=== PATIENT | male | born 1955 | race Caucasian/White ===

== ENCOUNTER 2024-06-21 08:30 | Outpatient (RCR) | payer MEDICARE, OTHER, SELFPAY | END 2024-08-30 08:40 | disposition home or self-care (01) | LOC: HO.CR 08:30 | PROVIDERS: PCP Family Medicine; Visit Provider Internal Medicine Cardiovascular Disease | DX: I21.4 Non-ST elevation (NSTEMI) myocardial infarction (principal) | CPT/HCPCS: 93798 ==

== ENCOUNTER → 2024-06-21 09:50 | Outpatient (REF) | payer MEDICARE, OTHER, SELFPAY ==
--- NOTE | 2024-06-21 09:59 | ECG_ITS ---
Test Reason : nstemi Blood Pressure : */* mmHG Vent. Rate : 64 BPM Atrial Rate : 64 BPM P-R Int : 140 ms QRS Dur : 74 ms QT Int : 396 ms P-R-T Axes : 48 -61 78 degrees QTcB Int : 408 ms Normal sinus rhythm Left anterior fascicular block Nonspecific T wave abnormality Abnormal ECG When compared with ECG of 18-Dec-2010 21:20, Left anterior fascicular block present Referred By: Dylan Garcia Electronically Signed By: Dylan Garcia
--- OUTSIDE RECORDS SUMMARY | 2024-06-21 11:13 | XMS_ITS | Clinical Summary ---
Author Organization [facility] Address [address] [place] [address] Care Team Providers Care Brickmason Apprentice Name Role Phone Yordan [place] MD Primary Care Provider +1- [phone] Allergies No known active allergies Medications Medication Sig Dispensed Refills Start Date End Date Status atorvastatin (LIPITOR) 40 MG tablet Take 40 mg by mouth. Acti ve carvedilol (COREG) 3.125 MG tablet Take 3.125 mg by mouth. 05/06/2024 Active predniSONE (DELTASONE) 2.5 MG tablet 2.5 mg. 03/22/2018 Active hydroCHLOROthiazide (MICROZIDE) 12.5 MG capsule Take by mouth. Active Xarelto 20 MG tablet Take 20 mg by mouth. Active valsartan (DIOVAN) 40 MG tablet Take 80 mg by mouth. 05/06/2024 Ac tive tacrolimus (Envarsus XR) 0.75 MG 24 hr tablet Take 0.75 mg by mouth. 03/22/2018 Active LORazepam (ATIVAN) 0.5 MG tablet Take 1 mg by mouth Once before discharge. 05/03/2024 Active lidocaine (LMX 4) 4 % cream 1 application as needed Externally Three times a day Active clopidogrel (PLAVIX) 75 MG tablet Take 75 mg by mouth daily. 05/06/2024 Active Active Problems No known active problems Encounters Date Type Department Care Team Description 06/16/2024 10:00 AM EDT [facility] [address] [place] [address] Katja Fowler MD Radiculopathy, lumbar region (Primary Dx) 06/07/2024 Scanned Document [facility] Department of Physiatry [place] [address] [place] [address] Malinda Michelle MD 05/30/2024 3:30 PM EDT Consult [facility] [address] [place] [address] Malinda Michelle MD Degenerative disc disease at L5-S1 level (Primary Dx); Chronic bilateral low back pain, unspecified whether sciatica present 05/29/2024 Travel 04/21/2024 Scanned Document [facility] Department of Physiatry [place] [address] [place] [address] Malinda Michelle MD 04/18/2024 Orders Only [facility] [address] [address] Katja Fowler MD Spondylolisthesis, lumbar region (Primary Dx); Radiculopathy, lumbar region 04/14/2024 10:15 AM EST [facility] [address] [place] [address] Rosa, ARMANDO NICHOLSON Low back pain, unspecified back pain laterality, unspecified chronicity, unspecified whether sciatica present (Primary Dx) 04/14/2024 Orders Only [facility] [address] [address] Katja Fowler MD Spondylolisthesis, lumbar region (Primary Dx) from Last 3 Months Family History Medical History Relation Name Comments Alcohol abuse Father Father Coronary artery disease Father Father Relation Name Status Comments Father Father Social History Tobacco Use Types Packs/Day Years Used Date Smoking Tobacco: Never Smokeless Tobacco: Never Alcohol Use Standard Drinks/Week Comments Not Currently 0 (1 standard drink = 0.6 oz pur e alcohol) Alcohol and beer Sex and Gender Information Value Date Recorded Sex Assigned at Male 04/13/2024 2:31 PM EST Gender Identity Male 04/13/2024 2:31 PM EST Sexual Orientation Asexual 04/13/2024 2: 31 PM EST Last Filed Vital Signs Vital Sign Reading Time Taken Comments Blood Pressure 149/87 05/30/2024 3:17 PM EDT Pulse 66 05/30/2024 3:17 PM EDT Temperature - - Respiratory Rate - - Oxygen Saturation 97% 05/30/2024 3:17 PM EDT Inhaled Oxygen Concentration - - Weight - - Height - - Body Mass Index - - Plan of Treatment Upcoming Encounters Date Type Department Care Team (Late st Contact Info) Description 07/31/2024 10:30 AM EDT Office Visit [facility] Department of Physiatry [place] [address] [place] [phone] Malinda Michelle MD [address] [place] [address] Health Maintenance Due Date Last Done Comments Hepatitis C Virus Screening 1955 DTaP/Tdap/Td Vaccines (1 - Tdap) 11/19/1974 Pneumococcal Vaccines 50+ (1 of 2 - PCV) 11/19/1974 Zoster (Shingles) Vaccine (1 of 2) 11/19/1974 Colonoscopy 11/19/2000 RSV Vaccine 60 years and older and Patients (1 - Risk 60-74 years 1-dose series) 2015 COVID-19 Vaccine ( season) 2023 01/16/2022, 06/04/2021, 01/29/2021, Additional history exists Influenza Vaccine Completed 12/07/2023, , 01/02/2022, Additional history exists Hepatitis B Vaccines Aged Out No long er eligible based on patient's age to complete this topic Care Teams Brickmason Apprentice Relationship Specialty Start Date End Date Yordan [place] MD [address] [place] [address] PCP - General Family Medicine 01/21/24
--- OUTSIDE RECORDS SUMMARY | 2024-06-21 11:13 | XMS_ITS ---
Author Name [facility] Organization Unknown History of Medication Use Medication Directions Dispensed Refills Start Date End Date Stat us atorvastatin (LIPITOR) 40 MG tablet Take 40 mg by mouth. active valsartan (DIOVAN) 40 MG tablet Take 80 mg by mouth. 05/06/2024 active clopidogrel (PLAVIX) 75 MG tablet Take 75 mg by mouth daily. 05/06/2024 active LORazepam (ATIVAN) 0.5 MG tablet Take 1 mg by mouth Once before discharge. 05/03/2024 active carvedilol (COREG) 3.125 MG tablet Take 3.125 mg by mouth. 05/06/2024 active lidocaine (LMX 4) 4 % cream 1 application as needed Externally Three times a day active hydroCHLOROthiazide (MICROZIDE) 12.5 MG capsule Take by mouth. active Xarelto 20 MG tablet Take 20 mg by mouth. active predniSONE (DELTASONE) 2.5 MG tablet 2.5 mg. 03/22/2018 active tacrolimus (Envarsus XR) 0.75 MG 24 hr tablet Take 0.75 mg by mouth. 03/22/2018 active tiZANidine (ZANAFLEX) 4 MG tablet Take 1 tablet (4 mg total) by mouth 3 (three) times a day as needed for muscle spasms. 01/21/2024 aborted Problems Problem Status Onset Date Problem Type Date of Resoluti on Source Degenerative disc disease at L5-S1 level active EncounterDiagnosisAct [facility] Chronic bilateral low back pain, unspecified whether sciatica present active EncounterDiagnosisAct [facility] Encounters Encounter Type Encounter Reason Primary Diagnosis Location Date Ambulatory Radiculopathy, lumbar region Radiculopathy, lumbar region [facility] 06/16/2024 Ambulatory Lumbar Back Pain Lumbar Back Pain [facility] 05/30/2024 Ambulatory Pain Pain [facility] 04/14/2024 Ambulatory [facility] 01/21/2024 Ambulatory Low back pain, unspecified Low back pain, unspecified [place] [facility] 01/21/2024 Care Team Organization Name Specialty Phone Email Start Date End [place] [facility] LATON[facility] RICCI Primary [facility] 01/22/2024 [place] [facility] LAT[facility] PRIDEONS Primary Care 01/21/2024 [facility] 01/10/2024
--- OUTSIDE RECORDS SUMMARY | 2024-06-21 11:13 | XMS_ITS | Encounter Summary ---
Author Organization [facility] Address [address] [place] [address] Care Team Providers Care Engineering Research Manager Name Role Phone Yordan [place] MD Primary Care Provider +1- [phone] Encounter Details Date Type Department Care Team (Late st Contact Info) Description 01/25/2024 Scanned Document [facility] [address] [phone] Katja Fowler MD [address] [place] [address] Social History Tobacco Use Types Packs/Day Years Used Date Smoking Tobacco: Never Assessed Sex and Gender Information Value Date Recorded Sex Assigned at Male 04/13/2024 2:31 PM EST Gender Identity Male 04/13/2024 2:31 PM EST Sexual Orientation Asexual 04/13/2024 2: 31 PM EST documented as of this encounter Plan of Treatment Upcoming Encounters Date Type Department Care Team (Late st Contact Info) Description 07/31/2024 10:30 AM EDT Office Visit [facility] Department of Physiatry [place] [address] [place] [address] Malinda Michelle MD [address] [place] [address] documented as of this encounter Visit Diagnoses Not on filedocumented in this encounter Care Teams Engineering Research Manager Relationship Specialty Start Date End Date Yordan [place] [address] PCP - General Family Medicine 01/21/24 documented as of this encounter
--- OUTSIDE RECORDS SUMMARY | 2024-06-21 11:13 | XMS_ITS | Encounter Summary ---
Author Organization [facility] Address [address] [place] [address] Care Team Providers Care Stock Crane Operator Name Role Phone Yordan [place] MD Primary Care Provider +1- [phone] Reason for Visit * Reason Comments Pain Encounter Details Date Type Department Care Team ([facility] st Contact Info) Description 06/16/2024 10:00 AM EDT [facility] [address] [address] Katja Fowler MD [address] [place] [address] Radiculopathy, lumbar region (Primary Dx) Social History Tobacco Use Types Packs/Day Years [...] PM EST documented as of this encounter Progress Notes * Katja Fowler MD - 06/16/2024 10:00 AM EDT Images from the original note were not included. [address] [facility] [address] [address] Encounter Date: 06/16/2024 Assessment & Plan Javier Gonzalez is a 68 y.o. male who presents today for Chief Complaint Patient presents with Spine - Pain . Signs and symptoms consistent with diagnosis of L5-S1 degenerative disc disease with relative degree of stenosis as well as possible trochanteric bursitis Plan: We discussed management options in detail today. Unfoortunately the injection that delayed due to some medical issues and being on blood thinner. Hopefully can proceed with injection in the future. Will see how he responds to this. Happy to see him back should injections not providing relief. The patient was informed of their diagnosis and treatment options. Medical decision-making involvedassessing all known acute and chronic conditions, the relationship of diagnoses, systemic effects, and acute exacerbations. External medical notes and results from diagnostic tests were reviewed whenapplicable. The risks and benefits of operative and non-operative treatment, including side effectsor complications of interventions (including medication and therapy) possible complications with and without treatment and when to proceed with options for surgery were reviewed. An independent historian was utilized if present, and communications were sent to listed providers. Any social or physica l determent of health, when relevant and recognized, was addressed. All necessary electronic precharting, postcharting and dictation was factored into clinical time documentation. History of Present Illness: Javier Gonzalez is a 68 y.o. male who presents today for Chief Complaint Patient presents with Spine - Pain . He returns to follow-up in regards to his lumbar spine. He has known L5-S1 degenerative disease. His ongoing pain in the back and hip area. He is also diagnosed with potential trochanteric bursitis. He had gone for injection evaluation but has not been able to get this completed as of yet. Orthopedics Symptoms and Treatments How many days per week do you experience symptoms? How many nights per week do you experience your symptoms? Do you experience any of the following? What makes symptoms worse? What treatments have you tried and did they help? Do you participate in any recreation activities or sports and are you currently able to participate? Physical Exam General: Alert and oriented x3, no acute distress Aspirations are unlabored, sitting comfortably Skin appears to be intact MSK: 5/5 in the bilateral iliopsoas, quadriceps, tibialis anterior, EHL and gastroc Sensation intact to light touch in the bilateral L2-S1 distribution Reflexes are normal and symmetric at the bilateral patella and ankle Imaging Imaging Impression: No imaging was obtained today Data Review Visit Orders. 1. Radiculopathy, lumbar region Answers submitted by the patient for this visit: Review of Systems (Submitted on 06/14/2024) Appetite change: No Chills: No Fever: No Weight Change: No Hearing loss: No Sore throat: No Ringing in the ears: No Trouble swallowing: No Eye redness: No Visual disturbance: Yes Cough: No Shortness of breath: No Wheezing: No Leg swelling: No Palpitations: No Abdominal pain: No Blood in stool: No Constipation: No Diarrhea: No Nausea: No Vomiting: No Cold intolerance: No Heat intolerance: No Excessive thirst: No Difficulty urinating: No Painful urination: No Flank pain: No Frequent urination: No Blood in urine: No Pain in/on penis: No Testicular pain: No Joint pains: Yes Back pain: Yes Muscle pains: No Rash: No Wound: No Environmental allergies: No Food allergies: No Low immune system: No Dizziness: No Headaches: No Numbness: No Seizures: No Fainting: No Tremors: No Swollen glands: No Easy bruising/bleeding: No Behavioral problem: No Nervous/anxious: Yes Sleep disturbance: No documented in this encounter Plan of Treatment Upcoming Encounters Date Type Department Care Team (Late st Contact Info) Description 07/31/2024 10:30 AM EDT Office Visit [facility] Department of Physiatry [place] [address] [place] [address] Malinda Michelle MD [address] [place] [address] documented as of this encounter Visit Diagnoses Diagnosis Radiculopathy, lumbar region- Primary Thoracic or lumbosacral neuritis or radiculitis, unspecified documented in this encounter Care Teams Stock Crane Operator Relationship Specialty Start Date End Date Yordan [place] MD [address] [place] [address] PCP - General Family Medicine 01/21/24 documented as of this encounter
--- OUTSIDE RECORDS SUMMARY | 2024-06-21 11:13 | XMS_ITS | Encounter Summary ---
Author Organization [facility] Address [address] [place] [address] Care Team Providers Care Experimental Mechanic [employer]board [employer] Name Role Phone Yordan [place] MD Primary Care Provider +1- [phone] Encounter Details Date Type Department Care Team (Late Contact Info) Description 04/21/2024 Scanned Document [facility] [place] [facility] Department of Physiatry [place] [address] [place] [phone] Malinda Michelle MD [address] [place] [address] Social History Tobacco Use Types Packs/Day Years [...] Description 07/31/2024 10:30 AM EDT Office Visit [facility] [place] [facility] Department of Physiatry [place] [address] [place] [phone] Malinda Michelle MD [address] [place] [address] documented as of this encounter Visit Diagnoses Not on filedocumented in this encounter Care Teams Experimental Mechanic [employer] Relationship Specialty Start Date End Date Yordan [place] [address] [address] PCP - General Family Medicine 01/21/24 documented as of this encounter
--- OUTSIDE RECORDS SUMMARY | 2024-06-21 11:13 | XMS_ITS ---
Author Organization [facility] Address [address] [place] [address] Care Team Providers Care Swiss Machinist Name Role Phone Yordan [place] MD Primary Care Provider Carina Galvan [phone] REASON FOR VISIT cx 09/07/2023 Encounters Encounter Location Date Provider Diagnosis [address] [address] 09/02/2023 Carina Parrish Plan Of Treatment No Information Progress Notes * Javier BUCKNERDOB:[birth year] (67 yo M)Acc No.[id number]:09/02/2023 Patient:?BucknerJavier tucker :1955???Age:67 Y???Sex:Male Address:[address] [place] [address], [address] * true * Date:? Generated for Printi ng/Faxing/eTransmitting on:?06/21/2024 11:13 AM EDT
--- OUTSIDE RECORDS SUMMARY | 2024-06-21 11:13 | XMS_ITS | Patient Health Record ---
Author Organization [facility] [place] Address [address] [place] [address] Care Team Providers Care Data Sme Name Role Phone Yordan [place] MD Primary Care Provider Carina Galvan Unavailable [phone] Allergies No Known Allergies Reason For Referral No Information Medications Medication SIG (Take, Route, Frequency, Duration) Notes Start Date End Date Status Calcium Citrate + D3 Active Cephalexin 500 MG 1 capsule Orally every 12 hrs for 7 days Active Cephalexin 500 MG 1 capsule Orally every 12 hrs for 5 days Not-Taking Xarelto 20 MG 1 tablet with food Orally Once a day Active amLODIPine Besylate 10 MG 1 tablet Orall y Once a day Active Atorvastatin Calcium 40 MG 1 tablet Oral ly Once a day Active Envarsus XR 0.75 MG as directed Orally Active predniSONE 2.5 MG 1 tablet Orally Once a day Active Lidocaine 4 % 1 application as needed Externally Three times a day Active Rivaroxaban 20 MG 1 tablet with food Orally Once a day Not-Taking hydroCHLOROthiazide 12.5 MG 1 capsule in the morning Orally Once a day Active LORazepam 0.5 MG 1 tablet at bedtime as needed Orally Once a day Active Social History Tobacco Use: Social History Observation Description Date Details (start date - stop date) Never Smoker NA - NA Tobacco Use/Smoking Question Answer Notes Are you a: nonsmoker Additional Findings: Tobacco Non-User Current no n-smoker Alcohol Screen Question Answer Notes Did you have a drink containing alcohol in the p ast year? No Points 0 Interpretation Negative Tobacco use other than smoking: Question Answer Notes Are you an other tobacco user? No Vital Signs Height 5ft9in in 08/13/2023 Weight 210 lbs 08/13/2023 BMI 31.01 kg/m2 08/13/2023 Encounters Encounter Location Date Provider Diagnosis [facility] [address] 08/13/2023 Carina Francois Ingrown nail L60.0 ; Cellulitis of toe of right foot L03.031 ; Tinea unguium B35.1 ; Pain in right toe(s) M79.674 and Pain in left toe(s) M79.[address] [facility] [address] 09/02/2023 Carina Parrish Assessments Encounter Date Diagnosis (ICD Code) Assessment Notes Treatment Notes Treatment Clinical Notes Section Notes 08/13/2023 Ingrown nail (ICD-10 - L60.0) 08/13/2023 Cellulitis of toe of right foot (ICD-10 - L03.031) 08/13/2023 Tinea unguium (ICD-10 - B35.1) 08/13/2023 Pain in right toe(s) (ICD-10 - M79.674) 08/13/2023 Pain in left toe(s) (ICD-10 - M79.675) Plan Of Treatment No Information Insurance Providers Payer Name Payer Address Payer Phone Subscriber Number Group Number Insured Name Patient Relationship to Insured Coverage Start Date Coverage End Date Medicare [employer] [address] [facility] [place] [address] [id number] Javier Gonzalez Self - patient is the insured [facility] [address] [place] [address] [id number] Javier Gonzalez Self - patient is the insured Medical (General) History Medical History History ICD Code High blood pressure Measles Chicken pox Stroke Blood clot in leg liver transplant Surgical History Surgery Date(Month/Year) liver transplant 07/28/2018
--- OUTSIDE RECORDS SUMMARY | 2024-06-21 11:13 | XMS_ITS ---
Author Organization [facility] Address [address] [place] [address] Care Team Providers Care Slip Dumper Name Role Phone Yordan Washington MD Primary Care Provider Carina Galvan Unavailable [phone] Allergies No Known Allergies REASON FOR VISIT Pcp-06/12, Ingrown nail, Skin problem(s), Painful nail(s) aggrevated by shoes causing difficulty standing/walking Medications Medication SIG (Take, Route, Frequency, Duration) Notes Start Date End Date Status amLODIPine Besylate 10 MG 1 tablet Orall y Once a day Active Atorvastatin Calcium 40 MG 1 tablet Oral ly Once a day Active Lidocaine 4 % 1 application as needed Externally Three times a day Active hydroCHLOROthiazide 12.5 MG 1 capsule in the morning Orally Once a day Active LORazepam 0.5 MG 1 tablet at bedtime as needed Orally Once a day Active Calcium Citrate + D3 Active Cephalexin 500 MG 1 capsule Orally every 12 hrs for 7 days Active Xarelto 20 MG 1 tablet with food Orally Once a day Active Envarsus XR 0.75 MG as directed Orally Active predniSONE 2.5 MG 1 tablet Orally Once a day Active Cephalexin 500 MG 1 capsule Orally every 12 hrs for 5 days Not-Taking Rivaroxaban 20 MG 1 tablet with food Orally Once a day Not-Taking Social History Tobacco Use: Social History Observation [...] 08/13/2023 Encounters Encounter Location Date Provider Diagnosis [facility] [place] [address] [place] [address] 08/13/2023 Carina Parrish Ingrown nail L60.0 ; Cellulitis of toe of right foot L03.031 ; Tinea unguium B35.1 ; Pain in right toe(s) M79.674 and Pain in left toe(s) M79.675 Assessments Encounter Date Diagnosis (ICD Code) Assessment Notes Treatment Notes Treatment Clinical Notes Section Notes 08/13/2023 Ingrown nail (ICD-10 - L60.0) 08/13/2023 Cellulitis of toe of right foot (ICD-10 - L03.031) 08/13/2023 Tinea unguium (ICD-10 - B35.1) 08/13/2023 Pain in right toe(s) (ICD-10 - M79.674) 08/13/2023 Pain in left toe(s) (ICD-10 - M79.675) Plan Of Treatment Medication Medication Name Sig Start Date Stop Date Notes Cephalexin 500 MG 1 capsule Orally every 12 hrs for 7 days Next Appt Details Follow Up: 2-4 Weeks, Reason : Procedure Notes * Category Sub-Category Detail Notes Debride Nail 6-10 Nail debridement Nail debridem ent performed extensively to reduce/remove overall nail length, girth, thickness, subungual debris, and necrotic tissue, by manual and electrical means through the use of a nail nipper and/or dremel, to more viable healthy nail plate or bed tissue 1-5. Silver nitrate used for any petechial bleeding as necessary. Patient chooses, no pharmaceutical tx (60009) Matricectomy (OP NOTE) Consent The patie nt was brought to the examination room and placed on the table in a supine position. The pre/bonny/postoperative course, risks, complications and alternatives were discussed, understood and accepted by the patient. No guarantees were given regarding the surgical outcome Procedure A digital prep with alcohol or betadine was performed. 3cc of 1 percent Xylocaine Plain local anesthetic was administered to the toe via digital block utilizing aseptic technique. A digital touriquet was applied. The affected toenail portion was undermined, incised and resected to the eponychium and matrix. It was noted to be significantly incurvated and hypertrophied. The nailbed and matrix were curetted and the nail groove, bed and matrix were cauterized with Phenol, 3 applications of 30 seconds each from a cotton tip applicator, no underling bone was identified. The surrounding skin was protected from the Phenol with Bacitracin ointment. The tourniquet was released and capillary fill time was intact to the digit. A sterile Bacitracin dressing was applied Disposition Disposition: The pat ient tolerated the procedure and anesthesia well and left in good condition, alert, oriented and stable in no acute distress. Local wound care instructions were discussed and dispensed. There were no complications and the prognosis is favorable, Recommended alternating/staggering Tylenol XS 2 tabs and Motrin 600mg q 6 hrs ea for discomfort, Rx narcotic postop pain meds were deferred Location Lateral nail border, T5 Progress Notes * Javier BUCKNERDOB:[birth year] (67 yo M)Acc No.[id number]:08/13/2023 Progress Note Patient:?Javier Buckner Provider:?Carina Parrish DPM :1955???Age:67 Y???Sex:Male Ricihe e:08/13/2023 Address:[address] [place], [place] [id number] Pcp:Yordan Washington MD Subjective: * Chief Complaints: * ???Pcp-06/12Lindsay nailSkin problem(s)Painful nail(s) aggrevated by shoes causing difficulty standing/walking * HPI: ???Skin problems:?Nature:?redness, swelling , tender.?Location:?Right 1st Toe(s).?Course:?worse.?Treatments:?none.?Painful Nails:?Pt States Last PCP Visit:?Date:?06/11/2023 * ROS:?General/Constitutional:?Nausea?denies.?Vomiting?denies.?Hunger Thirst?denies.?Loss appetite?denies.?Chills?denies.?Fatigue?denies.?Fever?denies.?Night Sweats?denies.?Unexplained weight loss?denies.?Unexplained weight gain?denies.?HEENTM:?Dentures?denies.?Dizziness?denies.?Glasses/contacts?denies.?Retinopathy?de nies.?Blurred/double vision?denies.?TMJ?denies.?Discharge/drainage?denies.?Implants?denies.?Sore throat?denies.?Dental implants?denies.?Hard of hearing ?denies.?Difficulty chewing/swallowing/speaking?denies.?Nose bleeds?denies.?Sore mouth?denies.?Respiratory:?On Oxygen?denies.?Pneumonia/pleurisy?denies.?Bronchitis?denies.?Emphysema?denies.?C oughing?denies.?Cough blood?denies.?Shortness of breath?denies.?Wheezing?denies.?Cardiovascular:?Pacemaker?denies.?MVP?denies.?WPW?denies.?CHF?denies.?Heart attack?denies.?Septal defect?denies.?Rapid beat?denies.?Chest pain ?denies.?Atrial Fib.?denies.?Murmur/Palpitations?denies.?Gastrointestinal:?Hemorrhoids?denies.?Stomach/Abdominal pain?denies.?Dark blood stool?denies.?Irritable bowel ?denies.?Constipation?denies.?Diarrhea?denies.?Hematology:?Swelling?denies.?Clots?denies.?Varicose Veins?denies.?Bruising?denies.?Bleeding problem?denies.?Genitourinary:?Blood urine?denies.?Frequent/Painfu/urination/bladder control?denies.?Kidney stones?denies.?Infection (UTI)?denies.?Nephropathy?denies.?sex trans dis (STD)?denies.?Prostate?denies.?Musculoskeletal:?Hammertoes?denies.?Bunions?denies.?Back Pain?denies.?Muscle Cramps/ Resting?denies.?Muscle cramps / walking?denies.?Generalized aches and pains?denies.?Weakness?denies.?Integ.:?Hansen?denies.?Scars?denies.?Corns/calluses?denies.?Ingrown nails?admits.?Painful nails?admits.?Open Sores?denies.?Rashes?denies.?Neurologic:?Difficulty sleeping?denies.?Brain disorder?denies.?Numbness?denies.?Balance trouble?denies.?Confusion?denies.?Fainting/blackouts?denies.?Tingling?denies.?Tr emors?denies.? * Medical History:? * Surgical History:?liver mott splant 07/28/2018 * Hospitalization/Major Diagno stic Procedure:?Denies Past Hospitalization * Family History:?Mother: savannah [place].?Father: , diagnosed with Unspecified heart disease, Other malignant neoplasm of unspecified site.? * Social History:?Tobacco Use:?Tobacco Use/Smoking?Are you a:?nonsmoker ?Additional Findings: Tobacco Non-User?Current non-smoker ?Tobacco use other than smoking?Are you an other tobacco user??No ???Drugs/Alcohol:?Drugs?Have you used drugs other than those for medical reasons in the past 12 months??No ?Alcohol Screen?Did you have a drink containing alcohol in the past year??No ?Points?0 ?Interpretation?Negative ???Miscellaneous:?no Caffeine. ?no Children. ?Exercise: yes, active., landscaping. ?Marital status: . ?Occupation: Retired. * Medications:?TakingXarelto 2 0 MG Tablet 1 tablet with food Orally Once a dayCalcium Citrate + D3 Envarsus XR 0.75 MG Tablet Extended Release 24 Hour as directed Orally predniSONE 2.5 MG Tablet 1 tablet Orally Once a dayamLODIPine Besylate 10 MG Tablet 1 tablet Orally Once a dayAtorvastatin Calcium 40 MG Tablet 1 tablet Orally Once a dayhydroCHLOROthiazide 12.5 MG Capsule 1 capsule in the morning Orally Once a dayLORazepam 0.5 MG Tablet 1 tablet at bedtime as needed Orally Once a dayLidocaine 4 % Cream 1 application as needed Externally Three times a dayTaking Xarelto 20 MG Tablet 1 tablet with food Orally Once a dayTaking Calcium Citrate + D3 Taking Envarsus XR 0.75 MG Tablet Extended Release 24 Hour as directed Orally Taking predniSONE 2.5 MG Tablet 1 tablet Orally Once a dayTaking amLODIPine Besylate 10 MG Tablet 1 tablet Orally Once a dayTaking Atorvastatin Calcium 40 MG Tablet 1 tablet Orally Once a dayTaking hydroCHLOROthiazide 12.5 MG Capsule 1 capsule in the morning Orally Once a dayTaking LORazepam 0.5 MG Tablet 1 tablet at bedtime as needed Orally Once a dayTaking Lidocaine 4 % Cream 1 application as needed Externally Three times a dayNot-Taking/PRNRivaroxaban 20 MG Tablet 1 tablet with food Orally Once a dayCephalexin 500 MG Capsule 1 capsule Orally every 12 hrsMedication List reviewed and reconciled with the patientNot-Taking/PRN Rivaroxaban 20 MG Tablet 1 tablet with food Orally Once a dayNot-Taking/PRN Cephalexin 500 MG Capsule 1 capsule Orally every 12 hrsMedication List reviewed and reconciled with the patient * Allergies:?N.K.D.A.yes[Aller gies Verified] Objective: * Vitals:?Ht: 5ft9in, Wt:210, BMI:31.01, Shoe size: 10.5, Ht-cm: 175.26 cm, Wt-k.25 kg. * Examination: ???Ingrown Nail: ?INSPECTION:?Reveals incurvation, pain on palpation, groove hypertrophy Lateral nail border T5.?Dermatologic: ?SKIN FINDINGS:? Skin shows sign(s) of, localized cellulitis T5 without lymphangitis extending proximally to the level of the MPJ.?Nails: ?NAILS are:?Elongated, overgrown, dystrophic, lytic, greater than 3mm thick, discolored and friable with crumbly malodorous subungual debris, with pain on palpation 1-5 B/L.?General Examination: ?GENERAL APPEARANCE:?Reveals a pleasant, alert, well nourished, well- developed, well hydrated individual, who demonstrates proper attention to hygiene/body habitus, and is in no acute distress, Pt serves as own historian for office visit today.?ORIENTED:?person, place, and time.?Vascular: ?DP PULSES:?3/4, B/L.?PT PULSES:?3/4, B/L.?CAPILLARY FILL TIME:?immediate, all digits, B/L.?SKIN TEMPERTURE GRADIENT OF THE LOWER EXTERMITIES:?normal, warm to cool, proximal to distal, B/L, B/L.? Assessment: * Assessment: 1.?Ingrown nail - L60.0 (Maryann greenfield)?2.?Cellulitis of toe of right foot - L03.031, Acute problem, Complicated w/ Multiple Tx Options(4),Dx New problem, Prognosis Uncertain (4),Rx Management (4)?3.?Tinea unguium - B35.1?4.?Pain in right toe(s) - M79.674?5.?Pain in left toe(s) - M79.675? Plan: * Treatment: * Procedures:?Debride Nail 6-10:?Nail debridement?Nail debridement performed extensively to reduce/remove overall nail length, girth, thickness, subungual debris, and necrotic tissue, by manual and electrical means through the use of a nail nipper and/or dremel, to more viable healthy nail plate or bed tissue 1-5. Silver nitrate used for any petechial bleeding as necessary. Patient chooses, no pharmaceutical tx (84391).?Matricectomy (OP NOTE):?Location?Lateral nail border, T5.?Consent?The patient was brought to the examination room and placed on the table in a supine position. The pre/bonny/postoperative course, risks, complications and alternatives were discussed, understood and accepted by the patient. No guarantees were given regarding the surgical outcome.?Procedure?A digital prep with alcohol or betadine was performed. 3cc of 1 percent ?Xylocaine Plain local anesthetic was administered to the toe via digital block utilizing aseptic technique. A digital touriquet was applied. The affected toenail portion was undermined, incised and resected to the eponychium and matrix. It was noted to be significantly incurvated and hypertrophied. The nailbed and matrix were curetted and the nail groove, bed and matrix were cauterized with Phenol, 3 applications of 30 seconds each from a cotton tip applicator, no underling bone was identified. The surrounding skin was protected from the Phenol with Bacitracin ointment. The tourniquet was released and capillary fill time was intact to the digit. A sterile Bacitracin dressing was applied .?Disposition?Disposition: The patient tolerated the procedure and anesthesia well and left in good condition, alert, oriented and stable in no acute distress. Local wound care instructions were discussed and dispensed. There were no complications and the prognosis is favorable, Recommended alternating/staggering Tylenol XS 2 tabs and Motrin 600mg q 6 hrs ea for discomfort, Rx narcotic postop pain meds were deferred.? * Procedure Codes:?63267 DEBRI DE NAIL, 6 OR MORE, Modifiers: XS 92849 REMOVAL OF NAIL BED, Modifiers: XS * Preventive Medicine:? ??Counseling:?Discussion:?-13: Office or other outpatient visit for the evaluation and management of an established patient, which required a medically appropriate history and/or examination and LOW level of DECISION MAKING for: 1 STABLE ACUTE UNCOMPLICATED PROBLEM, 2 OR MORE MINOR PROBLEMS, OR 1 STABLE CHRONIC PROBLEM, THAT POSE(S) A LOW RISK FOR MORBIDITY/MORTALITY. The visit on the day of the encounter encompassed interpreting the data and educating the patient as to the nature of their condition, treatment options available according to their individual PMH, meds, allergies, and overall health/living conditions, as well as any potential risks or complications that may occur from a failure to adhere to, and participate in, the recommended course of therapy. The discussion included a complete verbal, and/or written explanation of the examination results, any x-rays taken, the proposed diagnosis, and outline of the treatment plan. A schedule for future care needs was also explained. The patient verbalized an understanding of the instructions at this time and agreed to be an active participant in their treatment. If the patient should think of any questions or concerns after the visit, I have encouraged the patient to call the office.?Abscess/Paraonychia/Ingrown Nails:?We discussed the possible etiologies (genetic, improper nail care, shoe gear, nail trauma) which may lead to ingrown nails and/or paronychial infections. We discussed and reviewed palliative/nonsurgical/deferring definitive treatment (vs) undergoing the treatment procedures of nail avulsion(s) or PNA, which may prevent recurrence and give more lasting results. The possible risks/complications such as worsened condition/delayed healing/nonhealing/failure/recurrence/infection, the potential benefits/advantages of decreased pain/deformity, as well as alterative treatment options including applying nail softening agents/nail groove packing were discussed. No guarantees were given regarding any outcome for any procedure. The patient was educated in the length of time for the affected nail to regrow once completely healed from a nail avulsion procedure. Once the condition has completely healed, the patient was consulted on proper nail care. Patient questions such as details of each procedure, varying time to heal, activity post procedure, and shoe gear were discussed and the answers were verbally confirmed fully understood.?Cellulitis/Lymphangitis?The Pt. was counseled on the diagnosis, etiology, treatment options, and importance for adherence to recommendations regarding the treatment for Cellulitis. Abx were Rxed to address the cellulitis. The advantages and disadvantages of an antibiotic medication, along with its side effects, were discussed with the patient to their comprehended satisfaction. Patient questions re: use, dosage, and possible pharmacutical interactions were reviewed and the answers clearly understood. If the condition should worsen while taking the antibiotics as directed, it was recommeded that the patient call the office immediately or seek emergency medical care. The patient verbally confirmed a full understanding of the above information.? * Follow Up:?2-4 Weeks * Images: * Sign off status: Completed true * Provider:?Carina Parrish DPM Date:? Generated for Bharathi pichardo/Sena/Cristel on:?06/21/2024 11:13 AM EDT History and Physical Notes * HPI (History of Present Illness) Category Sub-Category Detail Notes Category Not es Painful Nails Pt States Last PCP Visit: Date:: 06/11/2023 Skin problems Nature: redness , swelling , tender Location: Right 1st Toe(s) Course: worse Treatments: none Examination Category Sub-Category Detail Notes Category Not es Ingrown Nail INSPECTION: Reveals incurvat ion, pain on palpation, groove hypertrophy Lateral nail border T5 Dermatologic SKIN FINDINGS: Skin shows sign( s) of, localized cellulitis T5 without lymphangitis extending proximally to the level of the MPJ General Examination GENERAL APPEARANCE: Reveals a pleasant, alert, well nourished, well-developed, well hydrated individual, who demonstrates proper attention to hygiene/body habitus, and is in no acute distress, Pt serves as own historian for office visit today ORIENTED: person, place, and t harinder Vascular DP PULSES (B): 3/4, B/L PT PULSES (B): 3/4, B/L CAPILLARY FILL TIME: immediate, all digi ts, B/L TEMPERTURE GRADIENT (C): normal, warm to cool, proximal to distal, B/L, B/L Nails NAILS are: Elongated, overg rown, dystrophic, lytic, greater than 3mm thick, discolored and friable with crumbly malodorous subungual debris, with pain on palpation 1-5 B/L
--- OUTSIDE RECORDS SUMMARY | 2024-06-21 11:13 | XMS_ITS | Encounter Summary ---
Author Organization [facility] Address [address] [place] [address] Care Team Providers Care Measurement Supervisor Name Role Phone Yordan Washington MD Primary Care Provider [phone] Encounter Details Date Type Department Care Team (Late Contact Info) Description 06/07/2024 Scanned Document [facility] Department of Physiatry [place] [address] [place] [phone] Malinda Michelle MD [address] [place] [address] Social History Tobacco Use Types Packs/Day Years [...] Encounters Date Type Department Care Team (Late Contact Info) Description 07/31/2024 10:30 AM EDT Office Visit [facility] Department of Physiatry [place] [address] [place] [phone] Malinda Michelle MD [address] [place] [address] documented as of this encounter Visit Diagnoses Not on filedocumented in this encounter Care Teams Measurement Supervisor Relationship Specialty Start Date End Date Yordan Washington MD [address] [place] [address] PCP - General Family Medicine 01/21/24 documented as of this encounter
--- OUTSIDE RECORDS SUMMARY | 2024-06-21 11:14 | XMS_ITS ---
Author Organization [facility] Address [address] [place] [address] Care Team Providers Care Computer Language Coder Name Role Phone Felix KENNEDY, Yordan Primary Care Provider Carina Galvan [phone] Encounters Encounter Location Date Provider Diagnosis [facility] [address] [place] [address] 09/07/2023 Carina Parrish Plan Of Treatment No Information Progress Notes * Javier BUCKNERDOB:[birth year] (68 yo M)Acc No.[id number]:09/07/2023 Progress Notes Patient:?Javier BUCKNER Provider:?Carina Parrish DPM :1955???Age:67 Y???Sex:Male Richie e:09/07/2023 Address:[address] [place], [place] [phone] Pcp:Yordan Washington MD Subjective: * Chief Complaints: * ??? * Medical History:? Objective: * Vitals:? Assessment: Plan: * Treatment: * Images: * The named appointment provid er may or may not be the originator of this progress note, and it is not deemed complete until electronically signed by the appointment provider. Sign off status: Pending * Provider:?Carina Parrish DPM Date:? Generated for Annettei kylee/Sena/eTransmitting on:?06/21/2024 11:13 AM EDT
== END ==
LOC: HO.CARD 09:50
PROVIDERS: PCP Family Medicine; Visit Provider Internal Medicine Cardiovascular Disease
DX: I21.4 Non-ST elevation (NSTEMI) myocardial infarction (principal)
CPT/HCPCS: 93005

== ENCOUNTER → 2024-06-21 09:59 | Outpatient (BNV) | payer MEDICARE, OTHER, SELFPAY | PROVIDERS: PCP Family Medicine; Visit Provider Internal Medicine Cardiovascular Disease | DX: I44.4 Left anterior fascicular block (principal) | CPT/HCPCS: 93010 ==